=== PATIENT | female | born 1945 | race Caucasian/White ===

== ENCOUNTER 2021-12-08 20:49 | Inpatient (IN) | payer MEDICARE, OTHER ==
[~2021-12-08] VITALS: Ht 167.6 cm; Wt 82.6 kg
[2021-12-08 20:00] VITALS: BP 116/53
[2021-12-08 20:30] VITALS: BP 116/53
[2021-12-08] MEDS ORDERED: REMEDY ESSENTIAL ZINC PASTE 113 GM TOP PRN (21:00)
[2021-12-08] MEDS ORDERED: ENOX40DI SQ (21:29)
[2021-12-08] MEDS ORDERED: ACET325T53 PO (21:29)
[2021-12-08] MEDS ORDERED: LISI10TA29 PO (21:29)
[2021-12-08] MEDS ORDERED: HYDR-3980 PO (21:29)
[2021-12-08] MEDS ORDERED: HYDR-3972 PO ×2 (21:29)
[2021-12-08] MEDS ORDERED: SENN-18 PO (21:29)
[2021-12-08] MEDS ORDERED: ACET-2154 PO (21:29)
[2021-12-08] MEDS ORDERED: BISA10SU61 RC (21:29)
[2021-12-08] MEDS ORDERED: AMLO10TA59 PO (21:29)
[2021-12-08] MEDS ORDERED: ZOLP5TAB8 PO (21:29)
[2021-12-08] MEDS ORDERED: PANT40TA49 PO (21:29)
[2021-12-08] MEDS ORDERED: CLON0.1T PO (21:29)
[2021-12-08] MEDS ORDERED: DOCU-141 PO (21:29)
[2021-12-08] MEDS ORDERED: BISACODYL 10 MG SUPP.RECT RC PRN (21:45)
[2021-12-08] MEDS ORDERED: ZOLPIDEM 5 MG TABLET PO PRN (21:45)
[2021-12-08] MEDS ORDERED: HYDROCODONE/APAP 5-325MG TABLET PO PRN (21:45)
[2021-12-08] MEDS ORDERED: ACETAMINOPHEN 325 MG TABLET-SA PATIENTS-PAIN ONLY PO PRN (21:45)
[2021-12-08] MEDS ORDERED: HYDROCODONE/APAP 10-325 MG TABLET PO PRN (21:45)
[2021-12-08] MEDS ORDERED: CLONIDINE HCL 0.1 MG TABLET PO PRN (21:45)
[2021-12-08] MEDS ORDERED: SENNOSIDES 1 TABLET PO PRN (21:45)
--- NOTE | 2021-12-09 03:45 | NUR ---
Received a y75 yr old female from [facility] with an admitting diagnosis of S/P left total hip hemiarthroplasty. AAOx4 Needs attended. All meds reconciled. Left hip dressing clean dry and intact. Abduction pillow in between legs. Denies any pain nor any discomfort. Fall precautions maintained. Eckert catheter intact draining yellow urine. Hx of HTN, cardiac disorder, Osteoarthritis, resection of meningioma 1 1/2 yr ago , N-stemi.Dr Ramires aware and Dr Sullivan aware of patient's admission. Will monitor patient.
[2021-12-09 04:00] VITALS: BP 101/53
[2021-12-09] MEDS ORDERED: ACETAMINOPHEN 325 MG TABLET PO PRN ×2 (05:45)
[2021-12-09] MEDS: PANTOPRAZOLE SODIUM 40 MG TABLET.DR PO SCH (06:10)
[2021-12-09 08:00] VITALS: BP 112/61
[2021-12-09] MEDS: DOCUSATE SODIUM 100 MG CAPSULE PO SCH ×2 (08:12→16:40)
[2021-12-09] MEDS: AMLODIPINE 10 MG TABLET PO SCH ×2 (08:19→08:21)
[2021-12-09] MEDS: LISINOPRIL 20 MG TABLET PO SCH ×2 (08:20→08:21)
[2021-12-09] MEDS: ENOXAPARIN SODIUM 40 MG/0.4 ML DISP.SYRIN SQ SCH (08:23)
[2021-12-09] MEDS ORDERED: LISINOPRIL 10 MG TABLET PO SCH (09:00)
[2021-12-09] MEDS ORDERED: SORBITOL 70% SOLUTION 30 ML UDC PO ONE (12:15)
[2021-12-09] MEDS ORDERED: LACTULOSE 20 G/30 ML LIQUID UDC PO ONE (12:15)
--- NOTE | 2021-12-09 14:15 | NUR ---
INTERDISCIPLINARY TEAM CONFERENCE
[2021-12-09] MEDS: HYDROCODONE/APAP 5-325MG TABLET PO PRN (14:37)
[2021-12-09 15:56] VITALS: BP 102/66
[2021-12-09 20:16] VITALS: BP 95/58
--- NOTE | 2021-12-10 00:54 | NUR ---
Awake upon initial rounds. AAOx4 All needs attended. VSS. No acute distress noted. Left hip dressing clean dry and intact. Abduction pillow in between legs. No complaints presented during shift. Eckert catheter intact draining yellow urine. I & O monitor. Fall precautions maintained. All due meds given without difficulty.
[2021-12-10 04:00] VITALS: BP 116/67
[2021-12-10] MEDS: PANTOPRAZOLE SODIUM 40 MG TABLET.DR PO SCH (06:11)
[2021-12-10 07:50] VITALS: BP 133/74
[2021-12-10] MEDS: HYDROCODONE/APAP 10-325 MG TABLET PO SCH ×2 (08:24→13:23)
[2021-12-10] MEDS: DOCUSATE SODIUM 100 MG CAPSULE PO SCH ×2 (08:26→17:00)
[2021-12-10] MEDS: LISINOPRIL 20 MG TABLET PO SCH (08:26)
[2021-12-10] MEDS: ENOXAPARIN SODIUM 40 MG/0.4 ML DISP.SYRIN SQ SCH (08:27)
[2021-12-10] MEDS: AMLODIPINE 10 MG TABLET PO SCH (09:35)
[2021-12-10 15:23] VITALS: BP 98/57
--- NOTE | 2021-12-10 17:56 | NUR ---
Patient alert and oriented, able to verbalize her needs and follow directions. Assisted patient with personal care/hygiene, ADLs and as needed. Patient on rehab for PT/OT skilled services, able to actively participate in therapy. Left hip surgery site treatment done as ordered; site intact, no s/s of bleeding or infection noted; abduction pillow applied as ordered. Patient mellisa. well procedure, denies pain. Medicated routinely with [place] as ordered by MD. and effective. Patient compliant with treatment, cooperative with care and staff. Daughter visited patient during shift. All needs anticipated and met, no unusual events during shift.
[2021-12-10 20:06] VITALS: BP 110/63
[2021-12-11 04:00] VITALS: BP 99/60
[2021-12-11] MEDS: PANTOPRAZOLE SODIUM 40 MG TABLET.DR PO SCH ×2 (06:03→08:31)
[2021-12-11 08:06] VITALS: BP 112/66
[2021-12-11] MEDS: HYDROCODONE/APAP 10-325 MG TABLET PO SCH ×2 (08:31→12:51)
[2021-12-11] MEDS: DOCUSATE SODIUM 100 MG CAPSULE PO SCH ×2 (08:31→16:41)
[2021-12-11] MEDS: ENOXAPARIN SODIUM 40 MG/0.4 ML DISP.SYRIN SQ SCH (08:33)
[2021-12-11] MEDS: AMLODIPINE 10 MG TABLET PO SCH (08:38)
[2021-12-11] MEDS: LISINOPRIL 20 MG TABLET PO SCH (08:38)
--- NOTE | 2021-12-11 15:51 | NUR ---
Received patient comfortably awake in bed. She is alert and oriented x4, calm and relaxed at this time. She is breathing normal on room air with no apparent distress noted. Respiration unlabored with saturations in the mid 90s. Patient is current on routine Ward. She is full code, on cardiac diet with no known allergies. All ADL's and morning routine care for. Patient is weight bearing as tolerated LLE. Walked with Physical Therapy. Skin intact, cool to the touch, dressing change on left hip with no discomfort and opti-foam applied to buttocks area with slight redness noted. Patient is stable/comfortable. All needs met accordingly. No new concerns at this time. Will continue to monitor on same plan of care.
[2021-12-11 16:00] VITALS: BP 122/68
[2021-12-11] MEDS: ENSURE ENLIVE (VAN) 240 ML LIQUID PO SCH (16:36)
[2021-12-11 19:54] VITALS: BP 105/63
[2021-12-12] VITALS: BP 119/51
--- NOTE | 2021-12-12 | NUR ---
--RECEIVED PT A/OX4 WITH STABLE VS. PT DENIES ANY PAIN. RESPS REG/UNLAB. LEFT HIP DRSG IS D/I. F/C I/P-U/O ADEQ. PT ENDORSED TO BINA DANIEL AT 0000. GEN. COND. HAS BEEN STABLE. KINGSLEY CURRAN
[2021-12-12 04:00] VITALS: BP 103/63
[2021-12-12 07:19] LABS: HEMATOCRIT 26.2 % (31.2-41.9); MEAN CORPUSCULAR HEMOGLOBIN 29.5 uug (24.7-32.8); MEAN CORPUSCULAR VOLUME 85.6 fL (75.5-95.3); PLATELET COUNT (AUTO) 220 K/uL (179-408)
[2021-12-12 07:34] LABS: CREATININE 0.9 mg/dL (0.6-1.3); MAGNESIUM 2.1 mg/dL (1.8-2.4); PHOSPHOROUS 4.1 mg/dL (2.5-4.9); POTASSIUM 4.8 mmol/L (3.5-5.1)
[2021-12-12 08:00] VITALS: BP 110/56
[2021-12-12] MEDS: PANTOPRAZOLE SODIUM 40 MG TABLET.DR PO SCH (08:26)
[2021-12-12] MEDS: HYDROCODONE/APAP 10-325 MG TABLET PO SCH ×2 (08:26→13:42)
[2021-12-12] MEDS: LISINOPRIL 20 MG TABLET PO SCH (08:27)
[2021-12-12] MEDS: ENOXAPARIN SODIUM 40 MG/0.4 ML DISP.SYRIN SQ SCH (08:27)
[2021-12-12] MEDS: AMLODIPINE 10 MG TABLET PO SCH (08:28)
[2021-12-12] MEDS: ENSURE ENLIVE (VAN) 240 ML LIQUID PO SCH (08:28)
[2021-12-12] MEDS: DOCUSATE SODIUM 100 MG CAPSULE PO SCH ×2 (08:28→17:00)
[2021-12-12 16:00] VITALS: BP 103/61
--- NOTE | 2021-12-12 17:14 | NUR ---
Patient comfortable and stable at this time. She is alert and oriented x4, verbal and able to make her needs known. Normal air movement with no apparent distress noted. Calm and relaxed. Weight bearing as tolerated. She walked with PT today. She has been resting mostly in bed. Meds are mixed with apple sauce. No new concerns. Blood pressure medication held due to low BP. Left AC hip lock was removed today. All need met accordingly. Will continue to monitor.
[2021-12-12 20:29] VITALS: BP 110/62
[2021-12-13 04:05] VITALS: BP 121/57
[2021-12-13 08:00] VITALS: BP 133/51
[2021-12-13] MEDS: HYDROCODONE/APAP 10-325 MG TABLET PO SCH ×2 (08:07→13:12)
[2021-12-13] MEDS: ENOXAPARIN SODIUM 40 MG/0.4 ML DISP.SYRIN SQ SCH (08:13)
[2021-12-13] MEDS: AMLODIPINE 10 MG TABLET PO SCH ×2 (08:13→08:25)
[2021-12-13] MEDS: LISINOPRIL 20 MG TABLET PO SCH ×2 (08:13→08:26)
[2021-12-13] MEDS: DOCUSATE SODIUM 100 MG CAPSULE PO SCH ×2 (08:13→17:11)
[2021-12-13] MEDS: ENSURE ENLIVE (VAN) 240 ML LIQUID PO SCH (08:15)
[2021-12-13 15:02] VITALS: BP 100/53
[2021-12-13] MEDS: HYDROCODONE/APAP 5-325MG TABLET PO PRN (22:48)
[2021-12-14] MEDS: PANTOPRAZOLE SODIUM 40 MG TABLET.DR PO SCH ×2 (06:17→08:26)
[2021-12-14] MEDS: HYDROCODONE/APAP 5-325MG TABLET PO PRN (06:30)
--- NOTE | 2021-12-14 06:55 | NUR ---
SHIFT NOTE; RECEIVED REPORT FROM AM NURSE MISTY PT C/O HIP PAIN FROM SITE PT WAS GIVEN NORCO 5/325 REASSESSED PT WITHIN AN HOUR PT ASLEEP. AT 0500 PT TAKEN TO BATHROOM AFTERWARD BEGINS TO CRY C/O VAGINAL ITCHING AND BEGIN TO CRY. PLACED A WARM TOWEL IN AROUND THE VAGINAL AREA PT STATES FEEL BETTER. MARITA ALVAREZ RAW FINISH MILL OPERATOR PHONE ORDERED A UA AND TO REPORT TO AM PROVIDER. NO SIGNS OF ADVERSE REACTION FROM PAIN PILLS WILL CONTINUE TO MONITOR AND REPORT SHIFTS FINDING TO AM NURSE.
[2021-12-14 07:11] LABS: *BILIRUBIN,URIN NEGATIVE (NEGATIVE); *BLOOD, URINE 1+ (NEGATIVE); *CLARITY,URINE CLOUDY (CLEAR); *COLOR,URINE YELLOW (YELLOW); *KETONES,URINE NEGATIVE (NEGATIVE); LEUKOCYTE ESTERASE ,URINE 1+ (NEGATIVE); NITRITE, URINE POSITIVE (NEGATIVE); UGLUCOSE NEGATIVE (NEGATIVE)
[2021-12-14 07:35] VITALS: BP 108/63
[2021-12-14] MEDS: HYDROCODONE/APAP 10-325 MG TABLET PO SCH ×2 (08:00→13:28)
[2021-12-14 08:26] LABS: BACTERIA,URINE MANY /HPF (NONE SEEN); SQUAMOUS EPITHELIAL CELL,UR FEW /HPF (NONE SEEN)
[2021-12-14] MEDS: DOCUSATE SODIUM 100 MG CAPSULE PO SCH ×2 (08:26→16:49)
[2021-12-14] MEDS: LISINOPRIL 20 MG TABLET PO SCH (08:26)
[2021-12-14] MEDS: AMLODIPINE 10 MG TABLET PO SCH (08:27)
[2021-12-14] MEDS: ENOXAPARIN SODIUM 40 MG/0.4 ML DISP.SYRIN SQ SCH (08:33)
[2021-12-14] MEDS: ENSURE ENLIVE (VAN) 240 ML LIQUID PO SCH (08:35)
[2021-12-14] MEDS: CLOTRIMAZOLE 1% VAG CREAM 45 GM TUBE VG SCH (10:22)
--- NOTE | 2021-12-14 11:09 | NUR ---
Lisinopril and amlodipine held due to low blood pressure. Receive report from warehouse worker 2nd shift nurse that patient is having vaginal itching, UA sent to lab @0643 this morning. Sn, called and informed doctor. New order received from Dr. Headley for clotrimazole Vag. cream HS one applicator for x7 days. Patient in bed comfortable will continue to monitor.
[2021-12-14 12:10] LABS: HEMATOCRIT 26.8 % (31.2-41.9); MEAN CORPUSCULAR HEMOGLOBIN 28.8 uug (24.7-32.8); MEAN CORPUSCULAR VOLUME 87.3 fL (75.5-95.3); PLATELET COUNT (AUTO) 269 K/uL (179-408)
[2021-12-14 12:19] LABS: CREATININE 0.7 mg/dL (0.6-1.3); POTASSIUM 4.9 mmol/L (3.5-5.1)
[2021-12-14] MEDS: CEFTRIAXONE 1 G in IV DEXTROSE 5% 50 ML IV SCH (12:39)
--- NOTE | 2021-12-14 12:56 | NUR ---
UA taken down to lab at 1230Pm. The RN just placed an IV line for her antibiotics. She is resting comfortably. Weight bearing as tolerated on LLE. New orders for a portable x-ray placed.
[2021-12-14 16:30] VITALS: BP 97/58
[2021-12-14 21:19] VITALS: BP 135/77
[2021-12-15] MEDS: HYDROCODONE/APAP 5-325MG TABLET PO PRN (01:54)
[2021-12-15 04:00] VITALS: BP 110/51
[2021-12-15 07:44] VITALS: BP 125/74
[2021-12-15] MEDS: HYDROCODONE/APAP 10-325 MG TABLET PO SCH ×2 (08:55→13:26)
[2021-12-15] MEDS: DOCUSATE SODIUM 100 MG CAPSULE PO SCH ×2 (08:55→16:23)
[2021-12-15] MEDS: AMLODIPINE 10 MG TABLET PO SCH (09:00)
[2021-12-15] MEDS: LISINOPRIL 20 MG TABLET PO SCH (09:00)
[2021-12-15] MEDS: ENOXAPARIN SODIUM 40 MG/0.4 ML DISP.SYRIN SQ SCH (09:02)
[2021-12-15] MEDS: ENSURE ENLIVE (VAN) 240 ML LIQUID PO SCH (09:04)
[2021-12-15] MEDS: CEFTRIAXONE 1 G in IV DEXTROSE 5% 50 ML IV SCH (12:58)
[2021-12-15 15:52] VITALS: BP 107/60
[2021-12-15 20:00] VITALS: BP 124/56
[2021-12-15] MEDS: CLOTRIMAZOLE 1% VAG CREAM 45 GM TUBE VG SCH (20:25)
[2021-12-16 04:00] VITALS: BP 120/55
--- NOTE | 2021-12-16 04:30 | NUR ---
AAOx4 Ambulates to the BR with walker. Continent of bowel and bladder. No BM noted this shift. All needs attended. Denies any pain at this time. Will monitor patient. Call zamorano within reach. Left hip dressing clean dry and intact, incision clean and dry. Fall precautions maintained. Siderails up for safety.
[2021-12-16] MEDS: PANTOPRAZOLE SODIUM 40 MG TABLET.DR PO SCH (06:05)
[2021-12-16 06:55] LABS: HEMATOCRIT 24.6 % (31.2-41.9); MEAN CORPUSCULAR HEMOGLOBIN 29.1 uug (24.7-32.8); MEAN CORPUSCULAR VOLUME 86.8 fL (75.5-95.3); PLATELET COUNT (AUTO) 260 K/uL (179-408)
[2021-12-16 07:45] LABS: THYROID STIMULATING HORMONE 0.941 mIU/mL (0.358-3.740)
[2021-12-16 08:05] VITALS: BP 122/58
[2021-12-16 08:08] LABS: BILIRUBIN,TOTAL 0.3 mg/dL (0.2-1.0); CREATININE 0.9 mg/dL (0.6-1.3); MAGNESIUM 2.2 mg/dL (1.8-2.4); PHOSPHOROUS 3.9 mg/dL (2.5-4.9); POTASSIUM 4.4 mmol/L (3.5-5.1); TOTAL PROTEIN, SERUM 6.2 g/dL (6.4-8.2)
[2021-12-16] MEDS: HYDROCODONE/APAP 10-325 MG TABLET PO SCH ×2 (08:18→12:57)
[2021-12-16] MEDS: LISINOPRIL 20 MG TABLET PO SCH (08:18)
[2021-12-16] MEDS: AMLODIPINE 10 MG TABLET PO SCH (08:18)
[2021-12-16] MEDS: DOCUSATE SODIUM 100 MG CAPSULE PO SCH ×2 (08:20→17:35)
[2021-12-16] MEDS: ENOXAPARIN SODIUM 40 MG/0.4 ML DISP.SYRIN SQ SCH (08:21)
[2021-12-16] MEDS: ENSURE ENLIVE (VAN) 240 ML LIQUID PO SCH (09:10)
--- NOTE | 2021-12-16 10:28 | NUR ---
0720-Rec'd patient in bed, awake, alert and able to verbalize her needs, denies pain. No physical or respiratory distress. Left hip clean DD in place. Safety measures in place and call light at reach. 0830-Scheduled/due medication administered with no A/R noted oral fluids taken well. Patient soon to be seen by rehab to her therapy session as scheduled.
[2021-12-16] MEDS: CEFTRIAXONE 1 G in IV DEXTROSE 5% 50 ML IV SCH (12:19)
--- NOTE | 2021-12-16 15:39 | NUR ---
INTERDISCIPLINARY TEAM CONFERENCE
[2021-12-16 15:54] VITALS: BP 125/56
--- NOTE | 2021-12-16 18:51 | NUR ---
Patient currently in bed, awake and watching TV. Assisted with her ADLS in general during the shift. Patient was given a shower this AM. mellisa. well. treatment to left hip surgical site done as ordered. No S/S of bleeding or infection noted. All needs anticipated and met, no GUIDO/from baseline status noted.
[2021-12-16 20:00] VITALS: BP 133/63
[2021-12-16] MEDS: ACIDOPHILUS/BULGARICUS CHEW TAB PO SCH (21:18)
[2021-12-16] MEDS: CLOTRIMAZOLE 1% VAG CREAM 45 GM TUBE VG SCH (21:34)
[2021-12-17 04:00] VITALS: BP 111/67
[2021-12-17] MEDS: PANTOPRAZOLE SODIUM 40 MG TABLET.DR PO SCH (06:11)
[2021-12-17] MEDS: HYDROCODONE/APAP 5-325MG TABLET PO PRN (06:22)
--- NOTE | 2021-12-17 07:36 | NUR ---
0710-Rec'd patient in bed, asleep, no respiratory distress. On R/A mellisa. well. Patient able to wake up on verbal commands, denies any pain/discomfort. Call light at reach & safety measures in place.
[2021-12-17 07:55] VITALS: BP 105/61
[2021-12-17] MEDS: AMLODIPINE 10 MG TABLET PO SCH ×2 (08:18→08:22)
[2021-12-17] MEDS: HYDROCODONE/APAP 10-325 MG TABLET PO SCH ×2 (08:18→13:15)
[2021-12-17] MEDS: LISINOPRIL 20 MG TABLET PO SCH ×2 (08:19→08:23)
[2021-12-17] MEDS: ACIDOPHILUS/BULGARICUS CHEW TAB PO SCH ×2 (08:19→21:18)
[2021-12-17] MEDS: DOCUSATE SODIUM 100 MG CAPSULE PO SCH ×2 (08:20→17:08)
[2021-12-17] MEDS: ENOXAPARIN SODIUM 40 MG/0.4 ML DISP.SYRIN SQ SCH (08:21)
[2021-12-17] MEDS: ENSURE ENLIVE (VAN) 240 ML LIQUID PO SCH (08:22)
[2021-12-17] MEDS: CEFTRIAXONE 1 G in IV DEXTROSE 5% 50 ML IV SCH (13:15)
[2021-12-17 15:00] VITALS: BP 110/58
[2021-12-17 20:00] VITALS: BP 133/68
[2021-12-17] MEDS: CLOTRIMAZOLE 1% VAG CREAM 45 GM TUBE VG SCH (21:00)
[2021-12-18 04:00] VITALS: BP 122/66
[2021-12-18] MEDS: PANTOPRAZOLE SODIUM 40 MG TABLET.DR PO SCH (06:35)
[2021-12-18 07:26] VITALS: BP 122/71
[2021-12-18] MEDS: HYDROCODONE/APAP 10-325 MG TABLET PO SCH ×2 (08:15→13:04)
[2021-12-18] MEDS: DOCUSATE SODIUM 100 MG CAPSULE PO SCH ×2 (08:16→17:38)
[2021-12-18] MEDS: AMLODIPINE 10 MG TABLET PO SCH (08:16)
[2021-12-18] MEDS: LISINOPRIL 20 MG TABLET PO SCH (08:16)
[2021-12-18] MEDS: ACIDOPHILUS/BULGARICUS CHEW TAB PO SCH ×2 (08:16→20:11)
[2021-12-18] MEDS: ENSURE ENLIVE (VAN) 240 ML LIQUID PO SCH (08:17)
[2021-12-18] MEDS: ENOXAPARIN SODIUM 40 MG/0.4 ML DISP.SYRIN SQ SCH (08:17)
[2021-12-18] MEDS: CEFTRIAXONE 1 G in IV DEXTROSE 5% 50 ML IV SCH (13:04)
[2021-12-18 15:04] VITALS: BP 112/56
[2021-12-18 20:00] VITALS: BP 116/55
[2021-12-18] MEDS: CLOTRIMAZOLE 1% VAG CREAM 45 GM TUBE VG SCH (20:12)
--- NOTE | 2021-12-19 03:42 | NUR ---
Awake alert and oriented x4 No acute distress noted. All needs attended. Left hip incision clean dry and intact. No acute distress noted. Denies any pain nor any discomfort. Fall precautions maintained. Call zamorano within reach. Continent of bowel and bladder. Will monitor patient.
[2021-12-19 04:00] VITALS: BP_SYST 118; BP_SYST 140; BP_DIAS 58; BP_DIAS 61
[2021-12-19] MEDS: PANTOPRAZOLE SODIUM 40 MG TABLET.DR PO SCH (06:01)
[2021-12-19 07:39] VITALS: BP 126/67
--- NOTE | 2021-12-19 07:42 | NUR ---
Patient in bed, awake, alert, able to verbalize needs, denies pain. On R/A with no respiratory distress observed. Safety measures in place, call light within reach.
[2021-12-19] MEDS: HYDROCODONE/APAP 10-325 MG TABLET PO SCH ×2 (08:10→13:33)
[2021-12-19] MEDS: ACIDOPHILUS/BULGARICUS CHEW TAB PO SCH ×2 (08:10→20:03)
[2021-12-19] MEDS: FERROUS SULFATE 325 MG TABEC PO SCH (08:10)
[2021-12-19] MEDS: AMLODIPINE 10 MG TABLET PO SCH (08:11)
[2021-12-19] MEDS: DOCUSATE SODIUM 100 MG CAPSULE PO SCH ×2 (08:11→17:22)
[2021-12-19] MEDS: LISINOPRIL 20 MG TABLET PO SCH (08:11)
[2021-12-19] MEDS: ENOXAPARIN SODIUM 40 MG/0.4 ML DISP.SYRIN SQ SCH (08:12)
[2021-12-19] MEDS: ENSURE ENLIVE (VAN) 240 ML LIQUID PO SCH (09:10)
[2021-12-19 16:30] VITALS: BP 105/61
[2021-12-19] MEDS: CLOTRIMAZOLE 1% VAG CREAM 45 GM TUBE VG SCH (20:03)
[2021-12-19 20:29] VITALS: BP 97/51
--- NOTE | 2021-12-20 01:51 | NUR ---
Awake alert and oriented x4 All needs attended. Tolerated po meds well. OOB to the BR with walker with standy by assist. Continent of bowel and bladder. No acute distress noted. VSS No complaints presented during the shift. Patient going to be discharge to home today.
[2021-12-20 05:19] VITALS: BP 116/59
[2021-12-20] MEDS: PANTOPRAZOLE SODIUM 40 MG TABLET.DR PO SCH (06:11)
[2021-12-20 07:41] VITALS: BP 92/62
[2021-12-20] MEDS: HYDROCODONE/APAP 10-325 MG TABLET PO SCH ×2 (08:00→12:00)
[2021-12-20] MEDS: ACIDOPHILUS/BULGARICUS CHEW TAB PO SCH (08:23)
[2021-12-20] MEDS: DOCUSATE SODIUM 100 MG CAPSULE PO SCH ×2 (08:23→16:29)
[2021-12-20] MEDS: FERROUS SULFATE 325 MG TABEC PO SCH (08:23)
[2021-12-20] MEDS: ENSURE ENLIVE (VAN) 240 ML LIQUID PO SCH (08:24)
[2021-12-20] MEDS: AMLODIPINE 10 MG TABLET PO SCH (08:25)
[2021-12-20] MEDS: LISINOPRIL 20 MG TABLET PO SCH (08:25)
[2021-12-20] MEDS: ENOXAPARIN SODIUM 40 MG/0.4 ML DISP.SYRIN SQ SCH (08:39)
[2021-12-20 16:43] VITALS: BP 109/58
--- NOTE | 2021-12-20 17:08 | NUR ---
patient is alert, oriented x4, no sob, respirations are even nonlabored,skin warm and dry to touch, patient is independent with adls, teaching provided about patient medications, patient stated understanding of taking home medications, teaching also provided to daughter over the phone to Shavonne, daughter Shavonne stated she has all the medications at home, patient does not need any prescriptions, educations provided to take patient to the primary doctor for follow up on blood work, and patient takes ferrous sulphate daily which is over the counter. daughter verbalizedc understanding of it. Addendum: 12/20/21 at 1733 by COCO NARVAEZ RN, RN spoke to daughter in law nany Prather, instructed to follow up with primary care doctor in one week to follow up for hemoglobin, and patient takes ferrous sulphate one tablet every day, over the counter. follow up with surgeon, call to make apt, and CD given to patient. daughter in law Mando verbalized understanding of it, belongings are accounted, signed.
== END 2021-12-20 18:00 | disposition home health service (06) | DRG 560 ==
PROVIDERS: ADMIT Physical Medicine & Rehabilitation Pain Medicine; ATTEND Physical Medicine & Rehabilitation Pain Medicine
DX: S72.012D Unspecified intracapsular fracture of left femur, subsequent encounter for closed fracture with routine healing (principal); D68.59 Other primary thrombophilia; N39.0 Urinary tract infection, site not specified; E44.0 Moderate protein-calorie malnutrition; W18.30XD Fall on same level, unspecified, subsequent encounter; I10 Essential (primary) hypertension; J30.9 Allergic rhinitis, unspecified; Z86.011 Personal history of benign neoplasm of the brain; Z96.642 Presence of left artificial hip joint; E66.9 Obesity, unspecified; G89.29 Other chronic pain; B96.89 Other specified bacterial agents as the cause of diseases classified elsewhere; M19.90 Unspecified osteoarthritis, unspecified site; Z68.29 Body mass index [BMI] 29.0-29.9, adult; R79.89 Other specified abnormal findings of blood chemistry; R73.9 Hyperglycemia, unspecified
CPT/HCPCS: 36415; 73501; 73551; 83550; 83735; 84100; 84443; 85025; 87086; 97535-GO-CO; A6209; A6213; J0696; J1650